=== PATIENT | female | born 1985 | race Caucasian/White ===

== ENCOUNTER 2019-02-11 17:12 | Emergency (ER) | payer BC, OTHER ==
[2019-02-11 18:39] VITALS: BP 103/75
[2019-02-11] MEDS ORDERED: Albuterol/Ipratropium NEB.SOL* Albuterol 2.5 MG/Ipratropium 0.5 MG 3 ML INH ONE (18:51)
[2019-02-11] MEDS ORDERED: predniSONE TAB* 20 MG PO ONE (18:51)
--- NOTE | 2019-02-11 18:58 | ED ---
Respiratory - HPI Summary HPI Summary: 33 yr old female with the complaint of coughing. Onset about a week ago. She has asthma and has been using her rescue inhaler a lot. She states she is concerned she could have pneumonia. She states her lower right on both sides hurt with the coughing. No fever. Her symptoms are moderate. - History of Current Complaint Chief Complaint: UCRespiratory Stated Complaint: WHEEZING,COUGH,FEVER Time Seen by Provider: 02/11/19 18:45 Pain Intensity: 5 - Allergy/Home Medications Allergies/Adverse Reactions: Allergies Allergy/AdvReac Type Severity Reaction Status Date / Time Sulfa (Sulfonamide Allergy Intermediate Rash Verified 02/11/19 18:39 Antibiotics) Home Medications: Home Medications D-Methorphan/PE/Acetaminophen [Vicks Dayquil Cold & Flu 10-5-325 mg/15Ml] 1 liq PO DAILY PRN 02/11/19 [History Confirmed 02/11/19] D-Methorphan/PE/Acetaminophen [Vicks Dayquil Cold & Flu 10-5-325 mg/15Ml] 1 liq PO QPM PRN 02/11/19 [History Confirmed 02/11/19] PMH/Surg Hx/FS Hx/Imm Hx Respiratory History: Reports: Hx Asthma Psychiatric History: Reports: Hx Depression Infectious Disease History: No Infectious Disease History: Denies: Traveled Outside the [place] in Last 30 Days - Family History Known Family History: Positive: None Family History: no cardio-vascular issues in lineage - Social History Alcohol Use: Occasionally Substance Use Type: Reports: None Smoking Status (MU): Light Every Day Tobacco Smoker Type: Cigarettes Amount Used/How Often: 1/3 PPD Length of Time of Smoking/Using Tobacco: 15 Years Have You Smoked in the Last Year: Yes Review of Systems Constitutional: Negative Positive: Shortness Of Breath, Cough All Other Systems Reviewed And Are Negative: Yes Physical Exam Triage Information Reviewed: Yes Vital Signs On Initial Exam: Initial Vitals Temp Pulse Resp BP Pulse Ox 98.1 F 107 22 103/75 96 02/11/19 18:32 02/11/19 18:32 02/11/19 18:32 02/11/19 18:32 02/11/19 18:32 Vital Signs Reviewed: Yes Appearance: Positive: Well-Appearing, No Pain Distress Skin: Positive: Warm, Skin Color Reflects Adequate Perfusion Head/Face: Positive: Normal Head/Face Inspection Eyes: Positive: EOMI ENT: Positive: Normal ENT inspection Neck: Positive: Nontender Respiratory/Lung Sounds: Positive: Rhonchi - right base, Wheezes - bilateral. Negative: Stridor Cardiovascular: Positive: RRR. Negative: Murmur Abdomen Description: Negative: Distended Musculoskeletal: Positive: Strength/ROM Intact Neurological: Positive: Sensory/Motor Intact, Alert, Oriented to Person Place, Time, CN Intact II-III, Normal Gait, Speech Normal Psychiatric: Positive: Normal - [place] Coma Scale Best Eye Response: 4 - Spontaneous Best Motor Response: 6 - Obeys Commands Best Verbal Response: 5 - Oriented Coma Scale Total: 15 Diagnostics - Vital Signs Vital Signs Temp Pulse Resp BP Pulse Ox 02/11/19 18:32 98.1 F 107 22 103/75 96 - Laboratory Lab Statement: Any lab studies that have been ordered have been reviewed, and results considered in the medical decision making process. - Radiology chest pa lat Radiology Interpretation Completed By: ED Physician - nad Disposition - Course Course Of Treatment: 33 yr old with cough, sob. - Diagnoses Provider Diagnoses: Asthma exacerbation Discharge ED - Sign-Out/Discharge Documenting (check all that apply): Patient Departure All imaging exams completed and their final reports reviewed: No Studies - Discharge Plan Condition: Good Disposition: HOME Prescriptions: Albuterol HFA INHALER* [Ventolin HFA Inhaler*] 1 - 2 puff INH Q4H PRN #1 mdi PRN Reason: Cough predniSONE TAB* [Deltasone 20 MG TAB*] 40 mg PO DAILY #8 tab Patient Education Materials: Asthma (ED) Referrals: Dorothy Finely MD [Primary Care Provider] - 2 Days - Billing Disposition and Condition Condition: GOOD Disposition: Home
--- NOTE | 2019-02-12 10:37 | UC ---
- Progress Note Progress Note: CXR final read negative Course/Dx - Diagnoses Provider Diagnoses: Asthma exacerbation Discharge ED - Sign-Out/Discharge Documenting (check all that apply): Post-Discharge Follow Up All imaging exams completed and their final reports reviewed: Yes - Discharge Plan Condition: Good Disposition: HOME Prescriptions: Albuterol HFA INHALER* [Ventolin HFA Inhaler*] 1 - 2 puff INH Q4H PRN #1 mdi PRN Reason: Cough predniSONE TAB* [Deltasone 20 MG TAB*] 40 mg PO DAILY #8 tab Patient Education Materials: Asthma (ED) Referrals: Dorothy Finley MD [Primary Care Provider] - 2 Days - Billing Disposition and Condition Condition: GOOD Disposition: Home
== END 2019-02-11 19:40 | disposition home or self-care (01) ==
LOC: UCCORT 17:12
DX: J45.901 Unspecified asthma with (acute) exacerbation (principal); Z88.2 Allergy status to sulfonamides; F17.210 Nicotine dependence, cigarettes, uncomplicated
CPT/HCPCS: 71046; 99202; A9270-GY; G0463; J7512